=== PATIENT | female | born 2000 | race Two or more races ===

== ENCOUNTER 2023-05-07 16:39 | Emergency (ER) | payer OTHER | END 2023-05-07 19:23 | disposition left against medical advice (07) | LOC: ER 16:56 | DX: Z53.21 Procedure and treatment not carried out due to patient leaving prior to being seen by health care provider (principal) ==

== ENCOUNTER 2023-05-09 09:12 | Emergency (ER) | payer OTHER ==
[~2023-05-09] VITALS: Ht 165.1 cm; Wt 127.0 kg
[2023-05-09] MEDS ORDERED: KETOROLAC TROMETHAMINE INJ 60 MG/2 ML VIAL IM ONE (10:30)
[2023-05-09] MEDS ORDERED: HYDROCODONE/APAP 10/325MG TABLET PO ONE (10:30)
[2023-05-09] MEDS ORDERED: HYDROCODONE/APAP 10/325MG TABLET ONE (10:31)
[2023-05-09] MEDS ORDERED: KETOROLAC TROMETHAMINE INJ 30 MG/ML VIAL ONE (10:55)
[2023-05-09] MEDS ORDERED: CYCL10TA9 PO (12:18)
[2023-05-09] MEDS ORDERED: IBUP-1955 PO (12:18)
[2023-05-09 12:51] VITALS: BP 126/72; TEMP 98; O2SAT 99
== END 2023-05-09 12:51 | disposition home or self-care (01) ==
LOC: ER 09:35
DX: M62.838 Other muscle spasm (principal); Z88.1 Allergy status to other antibiotic agents
CPT/HCPCS: 99283; 96372; 72050; J1885

== ENCOUNTER 2024-04-25 23:53 | Emergency (ER) | payer OTHER ==
[~2024-04-25] VITALS: Ht 165.1 cm; Wt 134.7 kg
[~2024-04-25 23:53] MED LIST: CYCL10TA9 PO; IBUP-1955 PO
[2024-04-26] MEDS ORDERED: CLIN300C12 PO (01:24)
[2024-04-26] MEDS ORDERED: SULFAMETH/TRIMETH 800/160 MG 1 UDTAB TABLET ONE (01:29)
[2024-04-26] MEDS: SULFAMETH/TRIMETH 800/160 MG 1 UDTAB TABLET PO ONE (01:33)
[2024-04-26 01:35] VITALS: BP 123/72; TEMP 98.2; O2SAT 98
== END 2024-04-26 01:36 | disposition home or self-care (01) ==
LOC: ER 23:57
DX: H60.02 Abscess of left external ear (principal); H92.02 Otalgia, left ear; Z88.0 Allergy status to penicillin; Z88.1 Allergy status to other antibiotic agents; Z79.899 Other long term (current) drug therapy

== ENCOUNTER 2024-10-23 01:46 | Emergency (ER) | payer MEDICAID, OTHER ==
[~2024-10-23 01:46] MED LIST changes: +CLIN300C12 PO
== END 2024-10-23 03:20 | disposition left against medical advice (07) ==
LOC: ER 01:49
DX: R51.9 Headache, unspecified (principal); R22.1 Localized swelling, mass and lump, neck; Z53.21 Procedure and treatment not carried out due to patient leaving prior to being seen by health care provider